=== PATIENT | male | born 1960 | race Hispanic/Latino ===

== ENCOUNTER 2016-08-02 11:59 | Inpatient (IN) | payer MEDICARE ==
[~2016-08-02] VITALS: Ht 152.4 cm; Wt 104.5 kg
[~2016-08-02 11:59] MED LIST: HYDR30CR76 RC; Lactulose PO
[2016-08-02 12:07] VITALS: BP 131/70; PULSE 94; RESP 18; O2SAT 98
--- NOTE | 2016-08-02 14:43 | ED.REPORT ---
HPI-General Illness Date of Service August 02, 2016 ED Provider: Maira Martinez History of Present Illness: forgets where he is sometimes. takes 2 grandchildren to school. no driving for the last 3 days. at 5 am started asking where the car was and his son is and who turned the car on? works at the [employer] shed, work is almost finished. usually walks but not for the last 3 days. has had 2 episodes of confusion in the last 3 month that resolved in 1 to 2 hours. legs are swollen feels dizzy and confused does not feel good, feels weak. Feeling weak for a while, 3 months. liver issues. Primary care is Dr. Alverto mckeon Nursing Notes Stated Complaint: MENTAL STATUS CHANGE Chief Complaint: General Complaint Nursing Notes Reviewed: Yes Allergies: Coded Allergies: No Known Allergies (Verified , 08/02/16) Uncoded Allergies: No Known Allergies (Allergy, Severe, 01/08/04) Scheduled Furosemide (Furosemide) 20 Mg Tab 60 MG PO DAILY Lactulose (Lactulose) 10 Gm/15 Ml Solution 60 ML PO 2-3times a day Spironolactone (Spironolactone) 50 Mg Tablet 150 MG PO DAILY General Time Seen by MD: 14:41 Chief Complaint Weakness (confusion), Other Hx Obtained From: Patient Past Medical History Past Medical History Reports: Morbid Obesity Past Surgical History denies Smoking History Never Smoker Social History Alcohol Use: Denies alcohol use Drug Use: Denies drug use Other Social History: Occupation lives with 08/02/2016 Ambulatory Status Independent Review of Systems Full Review of Systems Constitutional: Reports: Malaise, Weakness - generalized, Denies: Chills, Fatigue Respiratory: Reports: Dyspnea on exertion Complete sys rev & neg: except as marked. (unable to get inot bed, too weak to lift legs) Physical Exam Vital Signs Vital Signs Date Time Temp Pulse Resp B/P Pulse Ox O2 Delivery O2 Flow Rate FiO2 08/02/16 12:07 36.4 94 18 131/70 98 Room Air Initial VS: Reviewed, Vital signs normal General/Constitutional: Well-developed, Well-nourished Head / Eyes: Atraumatic, Normocephalic, PERRL ENT: Mucous membranes moist, Conjunctiva normal, No scleral icterus Neck: Supple, Non-tender, Full range of motion Respiratory: Breath sounds normal, Clear to auscultation, No respiratory distress Cardiovascular: Regular rate & rhythm, Heart sounds normal, Intact distal pulses Abdomen / GI: Soft, Non-tender, No guarding, No rebound, No distention Back: No CVA tenderness Lymphatic: No lymphadenopathy Extremities: Vascular intact, Neuro intact, No swelling, No tenderness Skin: Warm, Dry, No cyanosis Neurologic: Alert, Oriented, Nonfocal Psychiatric: Mood/affect normal, Behavior normal, Normal thought content General/Constitutional: Awake Alertness: Positive: Confused Appearance / Presentation: Positive: Appears older than age, Hygiene poor ( urine odor strong on his clothing), Obese, morbidly Head / Eyes: Atraumatic, Normocephalic, PERRL, EOMI ENT: Atraumatic, Airway patent, Mucous membranes moist, Pharynx NL Respiratory / Chest: Atraumatic, Breath sounds NL, Breath sounds = bilat, No respiratory distress Cardiovascular: Heart rate NL, Regular rhythm, Heart sounds NL Abdomen: Atraumatic, Soft, Non-tender Interpretation & Diagnostics Lab Results Interpretation Result Diagram: 08/02/16 1545 08/02/16 1545 Test 08/02/16 15:45 08/02/16 18:27 White Blood Count 5.2th/mm3 (3.8-10.1) Red Blood Count 3.70mil/mm3 (4.40-5.80) Hemoglobin 12.2g/dL (13.8-17.2) Hematocrit 35.6% (41.0-50.0) Mean Corpuscular Volume 96.2fL (81-100) Mean Corpuscular Hemoglobin 33.0pg (27.0-35.0) Mean Corpuscular Hemoglobin Concent 34.3% (32.0-37.0) Red Cell Distribution Width 15.3% (12.3-15.4) Platelet Count 85bil/L (150-400) Neutrophils (%) (Auto) 56.7% (40-74) Lymphocytes (%) (Auto) 31.8% (14-46) Monocytes (%) (Auto) 9.5% (4-12) Eosinophils (%) (Auto) 1.6% (0-5) Basophils (%) (Auto) 0.2% (0-3) Prothrombin Time 12.0sec (8.1-12.5) Prothromb Time International Ratio 1.12ratio Sodium Level 135mEq/L (134-144) Potassium Level 4.2mEq/L (3.5-5.2) Chloride Level 103mEq/L (97-108) Carbon Dioxide Level 21mmol/L (18-29) Blood Urea Nitrogen 10mg/dL (6-24) Creatinine 0.45mg/dL (0.76-1.27) Estimat Glomerular Filtration Rate 205mL/min (>59) Glucose Level 99mg/dL (60-99) Calcium Level 8.5mg/dL (8.5-10.1) Total Bilirubin 1.5mg/dL (0.0-1.2) Aspartate Amino Transf (AST/SGOT) 28U/L (0-50) Alanine Aminotransferase (ALT/SGPT) 15U/L (0-44) Alkaline Phosphatase 187U/L (25-150) Ammonia 295ug/dL (18-53) Troponin T < 0.010ug/L (0.0-0.011) Pro-B-Type Natriuretic Peptide 59.01pg/mL (0-210) Total Protein 6.8g/dL (6.4-8.4) Albumin 2.9g/dL (3.4-5.0) Hold Sinha Top Tube Received (Received) Urinalysis Comment None Lab Results Interpretation: urine pending X-Ray Interpretation Xray Interpretation: PROCEDURE: X-RAY CHEST, TWO VIEWS ([id number]) INDICATIONS: confusion TECHNIQUE: 2 views of the chest were acquired. COMPARISON: [facility], , XR CHEST 2VW, 09/14/2015, 20:17. FINDINGS: Surgical changes and devices: None. Lungs and pleura: No pleural effusions or pneumothorax. Lungs are clear. Mediastinum: Mediastinal contours are normal. Heart size is normal. Bones and chest wall: No suspicious bony abnormalities. Degenerative changes of the shoulders and spine are present. Soft tissues appear unremarkable. IMPRESSION: Negative chest. No acute cardiopulmonary process is evident. Dictated by: Steve Wallace M.D. on 08/02/2016 at 15:26 Approved by: Steve Wallace M.D. on 08/02/2016 at 15:27 CT Head Interpretation PROCEDURE: CT BRAIN WITHOUT CONTRAST ([id number]) INDICATIONS: confusion TECHNIQUE: Noncontrast 4.5 mm thick angled axial sections acquired from the foramen magnum to the vertex, with coronal reformats. COMPARISON: [facility], CT, CT BRAIN WO CON, 09/14/2015, 20:32. FINDINGS: Image quality: Excellent. CSF spaces: Basal cisterns are patent. No extra-axial fluid collections. The ventricles are symmetric in size and shape. Brain: No intracranial bleeds or masses. There is cerebral volume loss for age, with resultant ventricular and sulcal prominence. There are periventricular and deep white matter chronic small vessel ischemic changes. There is intracranial internal carotid artery atherosclerosis. Skull and face: Calvarium and visualized facial bones appear intact, without suspicious lesions. Sinuses: There is mild bilateral maxillary sinus mucosal thickening. Visualized sinuses and mastoids are otherwise clear. IMPRESSION: 1. No acute intracranial findings. 2. Mild findings likely associated with microvascular ischemic changes. Dictated by: Ama Peralta M.D. on 08/02/2016 at 15:36 Approved by: Ama Peralta M.D. on 08/02/2016 at 15:40 Re-Eval/Medical Decision Med Decision/Clinical Course 56 year old male brought in by family for increasing weakness and confusion. Patient is unable to get into the bed in the ER. At home he has been sleeping on the couch. This morning he starting asking bizzare questions. Work up reveals an ammonia level of 295. Brain CT is negative as is chest x-ray. Exam is consisent with hepatitic encaphapathy Discharge & Departure Primary Impression: Increased ammonia level Additional Impression: Altered level of consciousness Disposition: ADMITTED TO HOSPITAL [facility] EDSupervising Provider for APC: Alverto Aviles MD Attending Statement I discussed patient with nurse practitioner Michelle. Agree with plan as above. I evaluated the patient independently and agree with the plan as above. In brief, 56-year-old male with worsening confusion since yesterday. His ammonia is significantly elevated. He has history of alcohol abuse though has not drank for 3 years per . Patient will be admitted for altered mental status likely due to hepatic encephalopathy. copies to: [facility] Sue MAINTENANCE SERVICE SUPERVISOR August 02, 2016 14:42 Alverto Aviles MD August 02, 2016 17:46 (NONE SEEN) Urine Yeast None (NONE SEEN) Urinalysis Comment None Urine Culture Reflexed Not indicated Lab Results Interpretation: urine pending X-Ray Interpretation Xray Interpretation: PROCEDURE: X-RAY CHEST, TWO VIEWS ([id number]) INDICATIONS: confusion TECHNIQUE: 2 views of the chest were acquired. COMPARISON: [facility], CR, XR CHEST 2VW, 09/14/2015, 20:17. FINDINGS: Surgical changes and devices: None. Lungs and pleura: No pleural effusions or pneumothorax. Lungs are clear. Mediastinum: Mediastinal contours are normal. Heart size is normal. Bones and chest wall: No suspicious bony abnormalities. Degenerative changes of the shoulders and spine are present. Soft tissues appear unremarkable. IMPRESSION: Negative chest. No acute cardiopulmonary process is evident. Dictated by: Steve Wallace M.D. on 08/02/2016 at 15:26 Approved by: Steve Wallace M.D. on 08/02/2016 at 15:27 CT Head Interpretation PROCEDURE: CT BRAIN WITHOUT CONTRAST ([id number]) INDICATIONS: confusion TECHNIQUE: Noncontrast 4.5 mm thick angled axial sections acquired from the foramen magnum to the vertex, with coronal reformats. COMPARISON: [facility], CT, CT BRAIN WO CON, 09/14/2015, 20:32. FINDINGS: Image quality: Excellent. CSF spaces: Basal cisterns are patent. No extra-axial fluid collections. The ventricles are symmetric in size and shape. Brain: No intracranial bleeds or masses. There is cerebral volume loss for age, with resultant ventricular and sulcal prominence. There are periventricular and deep white matter chronic small vessel ischemic changes. There is intracranial internal carotid artery atherosclerosis. Skull and face: Calvarium and visualized facial bones appear intact, without suspicious lesions. Sinuses: There is mild bilateral maxillary sinus mucosal thickening. Visualized sinuses and mastoids are otherwise clear. IMPRESSION: 1. No acute intracranial findings. 2. Mild findings likely associated with microvascular ischemic changes. Dictated by: Ama Peralta M.D. on 08/02/2016 at 15:36 Approved by: Ama Peralta M.D. on 08/02/2016 at 15:40 Re-Eval/Medical Decision Med Decision/Clinical Course 56 year old male brought in by family for increasing weakness and confusion. Patient is unable to get into the bed in the ER. At home he has been sleeping on the couch. This morning he starting asking bizzare questions. Work up reveals an ammonia level of 295. Brain CT is negative as is chest x-ray. Exam is consisent with hepatitic encaphapathy Discharge & Departure Primary Impression: Increased ammonia level Additional Impression: Altered level of consciousness Disposition: ADMITTED TO HOSPITAL [facility]: [facility] ([facility]) EDSupervising Provider for APC: Alverto Aviles MD Attending Statement I discussed patient with nurse practitioner Michelle. Agree with plan as above. I evaluated the patient independently and agree with the plan as above. In brief, 56-year-old male with worsening confusion since yesterday. His ammonia is significantly elevated. He has history of alcohol abuse though has not drank for 3 years per . Patient will be admitted for altered mental status likely due to hepatic encephalopathy. copies to: [facility] Sue ARNP August 02, 2016 14:42 Alverto Aviles MD August 02, 2016 17:46
[2016-08-02] MEDS ORDERED: RIFA550T3 PO (14:52)
[2016-08-02] MEDS ORDERED: SPIR50TA2 PO (14:52)
[2016-08-02] MEDS ORDERED: FUR20 PO (14:52)
[2016-08-02] MEDS ORDERED: LACT10SO PO (14:52)
--- NOTE | 2016-08-02 15:41 | DRSVH ---
PROCEDURE: CT BRAIN WITHOUT CONTRAST ([id number]) INDICATIONS: confusion TECHNIQUE: Noncontrast 4.5 mm thick angled axial sections acquired from the foramen magnum to the vertex, with c oronal reformats. COMPARISON: [facility], CT, CT BRAIN WO CON, 09/14/2015, 20:32. FINDINGS: Image quality: Excellent. CSF spaces: Basal cisterns are patent. No extra-axial fluid collections. The ventricles are symmet isacc in size and shape. Brain: No intracranial bleeds or masses. There is cerebral volume loss for age, with resultant vent ricular and sulcal prominence. There are periventricular and deep white matter chronic small vessel ischemic changes. There is intracranial internal carotid artery atherosclerosis. Skull and face: Calvarium and visualized facial bones appear intact, without suspicious lesions. Sinuses: There is mild bilateral maxillary sinus mucosal thickening. Visualized sinuses and mastoids are otherwise clear. IMPRESSION: 1. No acute intracranial findings. 2. Mild findings likely associated with microvascular ischemic changes. Dictated by: Ama Peralta M.D. on 08/02/2016 at 15:36 Approved by: Aam Peralta M.D. on 08/02/2016 at 15:40
[2016-08-02 15:53] LABS: BASOPHILS % (AUTO) 0.2 % (0-3); EOSINOPHILS % (AUTO) 1.6 % (0-5); MONOCYTES % (AUTO) 9.5 % (4-12); Mean Corpuscular Volume 96.2 fL (81-100); NEUTROPHILS % (AUTO) 56.7 % (40-74); Platelet Count 85 bil/L (150-400)
[2016-08-02 16:10] LABS: INR 1.12 ratio
--- NOTE | 2016-08-02 16:28 | DRSVH ---
PROCEDURE: X-RAY CHEST, TWO VIEWS ([id number]) INDICATIONS: confusion TECHNIQUE: 2 views of the chest were acquired. COMPARISON: [facility], CR, XR CHEST 2VW, 09/14/2015, 20:17. FINDINGS: Surgical changes and devices: None. Lungs and pleura: No pleural effusions or pneumothorax. Lungs are clear. Mediastinum: Mediastinal contours are normal. Heart size is normal. Bones and chest wall: No suspicious bony abnormalities. Degenerative changes of the shoulders and s pine are present. Soft tissues appear unremarkable. IMPRESSION: Negative chest. No acute cardiopulmonary process is evident. Dictated by: Steve Wallace M.D. on 08/02/2016 at 15:26 Approved by: Steve Wallace M.D. on 08/02/2016 at 15:27
[2016-08-02 16:43] LABS: TROPONIN T < 0.010 ug/L (0.0-0.011)
--- NOTE | 2016-08-02 18:47 | PCM.HPMED ---
Subjective Date of Service August 02, 2016 Primary Provider: Admitting Physician: Primary Care Physician: Teresa Samuels-Samy Genny Sanders Attending Physician: Allergies Coded Allergies: No Known Allergies (Verified , 08/02/16) Uncoded Allergies: No Known Allergies (Allergy, Severe, 01/08/04) PMH Social History Hx Alcohol Use: Yes (HX ETOH abuse?) Hx Substance Use: No Smoking Status: Never Smoker Exam Vital Signs Vital Sign - Last Date Time Temp Pulse Resp B/P Pulse Ox O2 Delivery O2 Flow Rate FiO2 08/02/16 12:07 36.4 94 18 131/70 98 Room Air Lab and Diagnostics Result Diagram: 08/02/16 1545 08/02/16 1545 Assessment & Plan HPI: Patient is a 56-year-old Afghan-speaking gentleman who presents with complaint of altered mental status. The patient currently lives at home with his and states that he has had increased weakness and has been unable to ambulate. The patient currently has been sleeping in a chair because he has been unable to lift his legs to put in bed. The patient's also states that he has had a change in mental status and has been extremely forgetful over the last day and today he forgot where the bathroom was, where the car keys were , he was forgetting the names of his family members and the decided to bring him in. The patient currently does have a wheelchair however the states that he is ambulatory however over the last 3 days he has not been able to walk and his weakness has been progressing. It was noted in the ED that the patient has multiple medications that he is supposed to be taking however none of the medications had any updated expiration dates and so it is questionable as to whether or not the patient is currently taking his medication as prescribed. The states that she has been unable to monitor the patient's taking of medications that she is working during the day so she is unsure if he is actually taking his medications or not. Patient currently denies any chest pain, shortness of breath, nausea, vomiting. Patient complains of diarrhea ( most likely secondary to lactulose), dry eyes, abdominal pain in the right upper quadrant, lower extremity weakness, lower extremity swelling, and tenderness to palpation of the lower extremities bilaterally. Due to the patient's altered mental status most of his history was taken from the (Nikkie) and her son. Home medications: Lasix 60 mg daily Lactulose 60 mL by mouth 2-3 times a day RIFAXIMIN 550 mg by mouth twice a day Spironolactone 150 mg by mouth daily Allergies: No known drug allergies PMHx: Hepatitis SHx: Cholecystectomy FHx: Patient denies any family history of diabetes, hypertension, or heart disease SocHx: Occupation: Currently unemployed Tobacco history: Patient quit smoking 26 years ago Alcohol use: Former alcoholic patient quit drinking when he found out he had hepatitis 3 years ago Drug use: Patient denies ROS: A complete review of systems was performed or attempted to be performed. Please see HPI for pertinent positives, all other systems are negatives. Physical Exam: GEN: Patient was awake, alert, AAO 1 HEENT: Pupils equal round and reactive to light, extraocular eye muscles intact , sclera icteric Neck soft supple, trachea midline, nomocephalic/atraumatic CV: +S1/S2, regular rate and rhythm, positive systolic murmur grade 2/6 auscultated Respiratory: CTAB, no wheezes, rales, rhonchi GI: +bowel sounds x4, soft, compressible, tender to palpation EXT: no clubbing, cyanosis, +2 non-pitting edema in the lower extremities bilaterally, tenderness to palpation bilaterally Neuro: Cranial nerves II-XII grossly intact Psych: mood and affect were appropriate Assessment and Plan 56-year-old male with acute hepatic encephalopathy Hepatic encephalopathy most likely secondary to elevated ammonia levels -Start Lactulose 4 times a day -Continue home dose of Lasix -Repeat ammonia level in the morning -Follow up CBC & CMP Keratoconjunctivitis sicca -Teardrops 4 times a day -Continue to monitor Weakness -PT/OT consult -Continue to monitor -Hemoglobin A1c results pending -TSH results pending Diet: Renal DVT prophylaxis: Lovenox Code Status: Full code Disposition: Due to the nature of the patient's current diagnosis anticipated stay greater than 2 midnight Time spent 1 hour Gita Galindo DO August 02, 2016 18:47
[2016-08-02 19:26] LABS: APPEARANCE,URINE CLEAR (CLEAR,HAZY); COLOR,URINE YELLOW (YELLOW); OCCULT BLOOD,URINE NEGATIVE (NEGATIVE); UROBILINOGEN,URINE NORMAL (NORMAL)
[2016-08-02] MEDS ORDERED: Ondansetron 2 mg/mL 2 mL Inj IVPUSH PRN ×2 (19:50→20:05)
[2016-08-02] MEDS ORDERED: Alum-Mag Hydrox-Simeth 30 mL Suspension PO PRN ×2 (19:50→20:05)
[2016-08-02] MEDS ORDERED: Polyethylene Glycol (PEG) 17 Gm Powder PO PRN (20:05)
[2016-08-02] MEDS ORDERED: Artificial Tears 15 mL Ophthalmic Solution BOTH_EYES PRN (20:15)
[2016-08-02 20:30] VITALS: BP 129/74; PULSE 78; RESP 16; O2SAT 100
[2016-08-02 21:26] LABS: APPEARANCE,URINE CLEAR (CLEAR,HAZY); COLOR,URINE DARK YELLOW (YELLOW); OCCULT BLOOD,URINE LARGE (NEGATIVE); PH,URINE 7.5 (5.0-8.0)
[2016-08-02] MEDS: Lactulose 20 Gm/30 mL 30 mL Syrup PO SCH ×2 (21:30→23:04)
[2016-08-02] MEDS: Artificial Tears 15 mL Ophthalmic Solution BOTH_EYES SCH (22:28)
[2016-08-03 01:21] VITALS: BP 116/58; PULSE 74; RESP 20; O2SAT 95
[2016-08-03 06:10] VITALS: BP 115/71; PULSE 67; RESP 18; O2SAT 100
[2016-08-03] MEDS: Artificial Tears 15 mL Ophthalmic Solution BOTH_EYES SCH ×4 (06:21→21:19)
[2016-08-03] MEDS: Lactulose 20 Gm/30 mL 30 mL Syrup PO SCH ×4 (06:21→21:30)
[2016-08-03 06:44] LABS: Mean Corpuscular Hemoglobin 32.5 pg (27.0-35.0); Mean Corpuscular Volume 96.9 fL (81-100)
[2016-08-03 07:25] VITALS: BP 125/73; RESP 18
--- NOTE | 2016-08-03 11:13 | DRSVH ---
PROCEDURE: US ABDOMEN INDICATIONS: cirhosis TECHNIQUE: Real-time scanning was performed of the abdominal and retroperitoneal organs, with image documentatio n. COMPARISON: [facility], CT, CT ABD HEPATIC PROTOCOL, 04/07/2015, 15:51. [facility]ound, US, US ABDOMEN, 09/23/2015, 7:30. [facility], US, US ABDOMEN, 017, 8:13. FINDINGS: Liver length: 11.59 cm Spleen length: 11.98 cm Right kidney length: 9.81 cm Left kidney length: 10.91 cm Aorta(Mid): 2.05 cm Aorta(Distal): 2.08 cm Liver: Liver is atrophic, heterogeneous and coarse in appearance sella to prior examination. No foca l discrete hepatic mass is seen. Gallbladder: Cholecystectomy. Biliary ducts: Intrahepatic bile ducts are non-dilated. Extrahepatic bile duct caliber is normal. Normal is 6-7 mm or less in diameter, or 10 mm or less post-cholecystectomy. Pancreas: Visualized portions of the pancreas are sonographically normal. Spleen: Spleen is normal in size and homogeneous in echotexture. Kidneys: Kidneys are normal in size and echotexture. No hydronephrosis or nephrolithiasis. No chelsi d masses. Aorta: Visualized aorta is normal in caliber at less than 3 cm. Iliacs: Not well-seen. IVC: Intrahepatic inferior vena cava is patent. Miscellaneous: No free abdominal fluid. IMPRESSION: 1. Hepatic morphology suggesting cirrhosis similar to prior examination and no discrete focal hepatic abnormality seen in Dictated by: Kash Oconnor RRA Interpreted: Ama Peralta MD on 08/03/2016 at 11:10 Transcribed by: JOSHUA on 08/03/2016 at 11:12 Approved by: Ama Peralta M.D. on 08/03/2016 at 16:34
[2016-08-03 15:48] VITALS: BP 114/69; PULSE 81; RESP 18; O2SAT 99
--- NOTE | 2016-08-03 17:27 | PCM.PNMED ---
Subjective Date of Service August 03, 2016 Subjective Ultrasound done to look for ascites. Negative for ascites. Consistent with cirrhosis. Had 2 large bowel movements and mentation improved. Exam Vital Signs Vital Sign - Last Date Time Temp Pulse Resp B/P Pulse Ox O2 Delivery O2 Flow Rate FiO2 08/03/16 15:48 36.8 81 18 114/69 99 Room Air Intake and Output 08/02/16 08/02/16 08/03/16 Cumulative From/Thru 15:00 23:00 07:00 08/02/16 12:07 - 08/03/16 06:39 Intake Total 440 ml 440 ml Output Total 500 ml 500 ml Balance -60 ml -60 ml Intake Oral 440 ml 440 ml Output Urine Total 500 ml 500 ml # Voids 3 3 # Bowel Movements 0 0 Exam GEN: Patient was awake, alert, AAO 3 HEENT: Pupils equal round and reactive to light, extraocular eye muscles intact , sclera icteric Neck soft supple, trachea midline, nomocephalic/atraumatic CV: +S1/S2, regular rate and rhythm, positive systolic murmur grade 2/6 auscultated Respiratory: CTAB, no wheezes, rales, rhonchi GI: +bowel sounds x4, soft, compressible, tender to palpation EXT: no clubbing, cyanosis, +2 non-pitting edema in the lower extremities bilaterally, tenderness to palpation bilaterally Neuro: Cranial nerves II-XII grossly intact Psych: mood and affect were appropriate IVs and Medications Medications Reviewed: Medications were reviewed in detail Lab and Diagnostics Result Diagram: 08/03/1662408/03/16624 X-Rays, CTs and MRIs PROCEDURE: US ABDOMEN INDICATIONS: cirhosis FINDINGS: Liver length: 11.59 cm Spleen length: 11.98 cm Right kidney length: 9.81 cm Left kidney length: 10.91 cm Aorta(Mid): 2.05 cm Aorta(Distal): 2.08 cm Liver: Liver is atrophic, heterogeneous and coarse in appearance sella to prior examination. No focal discrete hepatic mass is seen. Gallbladder: Cholecystectomy. Biliary ducts: Intrahepatic bile ducts are non-dilated. Extrahepatic bile duct caliber is normal. Normal is 6-7 mm or less in diameter, or 10 mm or less post-cholecystectomy. Pancreas: Visualized portions of the pancreas are sonographically normal. Spleen: Spleen is normal in size and homogeneous in echotexture. Kidneys: Kidneys are normal in size and echotexture. No hydronephrosis or nephrolithiasis. No solid masses. Aorta: Visualized aorta is normal in caliber at less than 3 cm. Iliacs: Not well-seen. IVC: Intrahepatic inferior vena cava is patent. Miscellaneous: No free abdominal fluid. IMPRESSION: 1. Hepatic morphology suggesting cirrhosis similar to prior examination and no discrete focal hepatic abnormality seen in Dictated by: Kash Oconnor RRA Interpreted: Ama Peralta MD on 08/03/2016 at 11:10 Assessment & Plan Assessment and Plan 56-year-old male with acute hepatic encephalopathy #Hepatic encephalopathy -Improved after bowel movement. Mentation at baseline now. -Start Lactulose 4 times a day -Continue home dose of Lasix -Repeat ammonia level in the morning -Follow up CBC & CMP #Alcoholic cirrhosis -No alcohol for 3 years per patient and -Ultrasound of abdomen consistent with cirrhosis: No ascites -Continue Lasix and Aldactone -Patient does not remember having screening endoscopy, advised follow-up outpatient #Keratoconjunctivitis sicca -Teardrops 4 times a day -Continue to monitor #Lower Extremity edema -Likely due to cirrhosis -We will check echocardiogram #Weakness -PT -Continue to monitor -Hemoglobin A1c results pending -TSH results pending Diet: Renal DVT prophylaxis: Lovenox Code Status: Full code Disposition: Possible discharge tomorrow if continues to improve. Fritz Swain MD August 03, 2016 17:27
[2016-08-03 20:46] VITALS: BP 125/71; PULSE 73; RESP 18; O2SAT 99
[2016-08-04 05:50] VITALS: BP 127/68; PULSE 73; RESP 18; O2SAT 95
[2016-08-04] MEDS: Lactulose 20 Gm/30 mL 30 mL Syrup PO SCH ×2 (05:57→11:54)
[2016-08-04] MEDS: Artificial Tears 15 mL Ophthalmic Solution BOTH_EYES SCH ×2 (05:58→11:54)
--- NOTE | 2016-08-04 15:35 | DRSVH ---
[facility] [address] [place] [address] Echocardiogram Report Name: CHRISTIANO MILLS FStudy Date: 08/04 Height: 60 in Hospital Exam Location: [facility] Weight: 230 lb Gender: Male BSA: 2.0 m2 : 1960 Age: 56 yrs BP: 127/68 mmHg Reason For Study: Dyspnea Ordering Physician: Performed By: Mi Buenrostro Interpretation Summary The study quality was technically difficult. The patient was supine during test due to severe hip and leg cramps while in left lateral decubitus position. A contrast injection of Definity was performed to improve assessment of LV function. Comparison is made with the echocardiogram of 09/18/2015. The left ventricle is normal in size. Left ventricular systolic function is normal without focal wall motion abnormalities. The ejection fraction is estimated to be 70-75%. Assessment of diastolic parameters indicates normal left ventricular diastolic function and normal filling pressures. The right ventricle is not well visualized. Pulmonary artery pressures cannot be estimated because of the lack of a measurable TR jet velocity. The left atrium grossly appears normal in size. Right atrium not well visualized. No gross valvular abnormalities. The aortic root is normal size. There is no pericardial effusion. No significant changes since prior study. Procedure: A two-dimensional transthoracic echocardiogram with color flow and Doppler was performed. The study quality was technically difficult. The patient was supine during test due to severe hip and leg cramps while in left lateral decubitus position. A contrast injection of Definity was performed to improve assessment of LV function. Comparison is made with the echocardiogram of 09/18/2015. The subcostal views were not obtained due to lack of visualization of cardiac anatomy. The patient was in normal sinus rhythm during the exam. Left Ventricle: The left ventricle is normal in size. There is normal left ventricular wall thickness. Left ventricular systolic function is normal without focal wall motion abnormalities. The ejection fraction is estimated to be 70-75%. Assessment of diastolic parameters indicates normal left ventricular diastolic function and normal filling pressures. Right Ventricle: The right ventricle is not well visualized. Atria: The left atrium grossly appears normal in size. Right atrium not well visualized. There is no Doppler evidence for an interatrial shunt. Mitral Valve: The mitral valve is grossly normal. There is no mitral regurgitation noted. Aortic Valve: The aortic valve is trileaflet. The aortic valve opens well. No aortic regurgitation is present. Tricuspid Valve: The tricuspid valve is not well visualized, but is grossly normal. Pulmonary artery pressures cannot be estimated because of the lack of a measurable TR jet velocity. There is mild tricuspid regurgitation. Pulmonic Valve: The pulmonic valve is not well visualized. There is no pulmonic valvular regurgitation. No gross valvular abnormalities. Great Vessels: The aortic root is normal size. The ascending aorta is normal in size. The inferior vena cava was not visualized. Pericardium/ Pleura There is no pericardial effusion. MMode/2D Measurements & Calculations LVIDd: 4.7 cm LA A2 area Ao root diam LV [place]. diameter/BSA LVIDs: 3.6 cm (cm/m^2): 2.4 FS: 22.8 % asc Aorta IVSd: 0.95 cm LA A4 area Diam: 3.0 cm LVPWd: 0.81 cm LA length (vol) LA vol: 56.7 ml LA vol index : 28.6 ml/m2 LV sys. diameter/BSA (cm/m^2): 1.8 Doppler Measurements & Calculations Ao V2 max MV E max jorge MV E/A: 0.98 PA V2 max : 184.9 cm/sec : 98.9 cm/sec Med Peak E' Jorge : 116.1 cm/sec Ao max PG MV A max jorge PA mean PG : 13.7 mmHg : 101.1 cm/sec E/E' med: 8.4 Ao mean PG MV P1/2t: 80.7 msec PA Accel Time : 6.6 mmHg : 0.09 sec MV dec time MV P1/2t max jorge Ao V2 mean PA V2 mean : 0.27 sec : 115.3 cm/sec : 71.4 cm/sec Ao V2 VTI: 37.1 cm MVA(P1/2t): 2.7 cm2 Reading Physician:SHAKILA
[2016-08-04 15:53] VITALS: BP 115/70; PULSE 68; RESP 16; O2SAT 98
--- NOTE | 2016-08-04 16:45 | PCM.DIMED ---
Discharge Instructions Date of Service August 04, 2016 Dates of Hospitalization August 02, 2016 at 19:02 Discharge Diagnosis Discharge Diagnosis #Hepatic encephalopathy #Alcoholic cirrhosis #Keratoconjunctivitis sicca #Lower Extremity edema #Weakness Diet Low fat, Low Sodium Activity Limited until seen by PCP Call your provider Fever or Chills, Shortness of breath, Bleeding, Chest pain, Vomitting, Excessive diarrhea Patient Instructions You were hospitalized due to confusion due to hepatic encephalopathy . Please take rifaximin and lactulose as prescribed and titrate to 2-3 bowel movements a day. You have no fluid collection in abdomen ,i have lowered your lasix and spironolactone doses . Please follow up with PC for screening endoscopy and further adjustment of medications . Follow-up Provider: Shalom PEARCE Follow-up with PCP in: 1 week Fritz Swain MD August 04, 2016 16:45
[2016-08-04] MEDS ORDERED: FUR20 PO (16:46)
[2016-08-04] MEDS ORDERED: Artificial Tears BOTH_EYES (16:46)
[2016-08-04] MEDS ORDERED: SPIR50TA2 PO (16:46)
[2016-08-04] MEDS ORDERED: SPIR25TA3 PO (16:47)
--- NOTE | 2016-08-04 17:12 | PCM.DC.MED ---
Discharge Summary Date of Service August 04, 2016 Dates of Hospitalization Date of Hospital Admission August 02, 2016 at 19:02 Date of Discharge: August 04, 2016 Providers: Admitting Physician: Gita Galindo DO Primary Care Physician: [facility] Attending Physician: Gita Galindo DO Diagnosis at Time of Discharge Diagnosis at Time of Discharge #Hepatic encephalopathy #Alcoholic cirrhosis #Keratoconjunctivitis sicca #Lower Extremity edema #Weakness Procedures XRay, CTs & MRIs PROCEDURE: US ABDOMEN INDICATIONS: cirhosis FINDINGS: Liver length: 11.59 cm Spleen length: 11.98 cm Right kidney length: 9.81 cm Left kidney length: 10.91 cm Aorta(Mid): 2.05 cm Aorta(Distal): 2.08 cm Liver: Liver is atrophic, heterogeneous and coarse in appearance sella to prior examination. No focal discrete hepatic mass is seen. Gallbladder: Cholecystectomy. Biliary ducts: Intrahepatic bile ducts are non-dilated. Extrahepatic bile duct caliber is normal. Normal is 6-7 mm or less in diameter, or 10 mm or less post-cholecystectomy. Pancreas: Visualized portions of the pancreas are sonographically normal. Spleen: Spleen is normal in size and homogeneous in echotexture. Kidneys: Kidneys are normal in size and echotexture. No hydronephrosis or nephrolithiasis. No solid masses. Aorta: Visualized aorta is normal in caliber at less than 3 cm. Iliacs: Not well-seen. IVC: Intrahepatic inferior vena cava is patent. Miscellaneous: No free abdominal fluid. IMPRESSION: 1. Hepatic morphology suggesting cirrhosis similar to prior examination and no discrete focal hepatic abnormality seen in Dictated by: Kash Oconnor RRA Interpreted: Ama Peralta MD on 08/03/2016 at 11:10 Cardiac Echo Impression Interpretation Summary The study quality was technically difficult. The patient was supine during test due to severe hip and leg cramps while in left lateral decubitus position. A contrast injection of Definity was performed to improve assessment of LV function. Comparison is made with the echocardiogram of 09/18/2015. The left ventricle is normal in size. Left ventricular systolic function is normal without focal wall motion abnormalities. The ejection fraction is estimated to be 70-75%. Assessment of diastolic parameters indicates normal left ventricular diastolic function and normal filling pressures. The right ventricle is not well visualized. Pulmonary artery pressures cannot be estimated because of the lack of a measurable TR jet velocity. The left atrium grossly appears normal in size. Right atrium not well visualized. No gross valvular abnormalities. The aortic root is normal size. There is no pericardial effusion. No significant changes since prior study. Brief History per HPi HPI: Patient is a 56-year-old [place]i-speaking gentleman who presents with complaint of altered mental status. The patient currently lives at home with his and states that he has had increased weakness and has been unable to ambulate. The patient currently has been sleeping in a chair because he has been unable to lift his legs to put in bed. The patient's also states that he has had a change in mental status and has been extremely forgetful over the last day and today he forgot where the bathroom was, where the car keys were , he was forgetting the names of his family members and the decided to bring him in. The patient currently does have a wheelchair however the states that he is ambulatory however over the last 3 days he has not been able to walk and his weakness has been progressing. It was noted in the ED that the patient has multiple medications that he is supposed to be taking however none of the medications had any updated expiration dates and so it is questionable as to whether or not the patient is currently taking his medication as prescribed. The states that she has been unable to monitor the patient's taking of medications that she is working during the day so she is unsure if he is actually taking his medications or not. Patient currently denies any chest pain, shortness of breath, nausea, vomiting. Patient complains of diarrhea ( most likely secondary to lactulose), dry eyes, abdominal pain in the right upper quadrant, lower extremity weakness, lower extremity swelling, and tenderness to palpation of the lower extremities bilaterally. Due to the patient's altered mental status most of his history was taken from the (Nikkie) and her son. Hospital Course Assessment and Plan 56-year-old male with acute hepatic encephalopathy #Hepatic encephalopathy -Improved after bowel movement. Mentation at baseline now. -Continue Lactulose 4 times a day. Advised to titrate to 2-3 bowel movements -Elevated ammonia on admission #Alcoholic cirrhosis -No alcohol for 3 years per patient and -Ultrasound of abdomen consistent with cirrhosis: No ascites -Continue Lasix and Aldactone. Patient is on a very high-dose of diuretics. Aldactone 150 daily and Lasix 60 daily. He has +1 edema on the lower extremity but no ascites on ultrasound. I lowered his Lasix to 20 mg daily and Aldactone 25 mg daily. May even stop outpatient if lower extremity edema improves -Patient does not remember having screening endoscopy, advised follow-up outpatient #Keratoconjunctivitis sicca -Teardrops 4 times a dayr #Lower Extremity edema -Likely due to cirrhosis - echocardiogram unremarkable #Weakness, can be due to overdiuresis. Lowered diuresis as above -Outpatient PT -A1c 5.1, TSH normal Discharge to home Condition on discharge stable and improved Exam Vital Signs (Last) Date Time Temp Pulse Resp B/P Pulse Ox O2 Delivery O2 Flow Rate FiO2 08/04/16 15:53 37.1 68 16 115/70 98 Room Air Exam GEN: Patient was awake, alert, AAO 3 HEENT: Pupils equal round and reactive to light, extraocular eye muscles intact , sclera icteric Neck soft supple, trachea midline, nomocephalic/atraumatic CV: +S1/S2, regular rate and rhythm, positive systolic murmur grade 2/6 auscultated Respiratory: CTAB, no wheezes, rales, rhonchi GI: +bowel sounds x4, soft, compressible,non tender to palpation . No sign of fluid collection EXT: no clubbing, cyanosis, +2 non-pitting edema in the lower extremities bilaterally, tenderness to palpation bilaterally Neuro: Cranial nerves II-XII grossly intact Psych: mood and affect were appropriate Test 08/02/16 15:45 08/02/16 21:02 08/03/16 06:25 Neutrophils (%) (Auto) 56.7% (40-74) Lymphocytes (%) (Auto) 31.8% (14-46) Monocytes (%) (Auto) 9.5% (4-12) Eosinophils (%) (Auto) 1.6% (0-5) Basophils (%) (Auto) 0.2% (0-3) Prothrombin Time 12.0sec (8.1-12.5) Prothromb Time International Ratio 1.12ratio Hemoglobin A1c 5.1% (4.8-5.6) Troponin T < 0.010ug/L (0.0-0.011) Pro-B-Type Natriuretic Peptide 59.01pg/mL (0-210) Hold Sinha Top Tube Received (Received) Urine Color Dark yellow (YELLOW) Urine Appearance Clear (CLEAR,HAZY) Urine pH 7.5 (5.0-8.0) Urine Specific [place] 1.010 (1.003-1.035) Urine Protein Tracemg/dL (NEG,TRACE) Urine Glucose (UA) Negativemg/dL (NEGATIVE) Urine Ketones Tracemg/dL (NEGATIVE) Urine Occult Blood Large (NEGATIVE) Urine Nitrite Negative (NEGATIVE) Urine Bilirubin Negative (NEGATIVE) Urine Urobilinogen 1.0mg/dL (NORMAL) Urine Leukocyte Esterase Negative (NEGATIVE) Urine RBC >50/hpf (0-2) Urine WBC 0-5/hpf (0-5) Urine Epithelial Cells None/hpf (NONE-MOD) Urine Crystals None seen (NONE SEEN) Urine Bacteria Few/hpf (NONE-FEW) Urine Hyaline Casts None/lpf (NONE) Urine Granular Casts None seen (NONE SEEN) Urine Waxy Casts None seen (NONE SEEN) Urine Red Blood Cell Casts None seen (NONE SEEN) Urine White Blood Cell Casts None seen (NONE SEEN) Urine Mucus None seen (None Seen) Urine Trichomonas None seen (NONE SEEN) Urine Yeast None (NONE SEEN) Urinalysis Comment None Urine Culture Reflexed Not indicated White Blood Count 3.8th/mm3 (3.8-10.1) Red Blood Count 3.51mil/mm3 (4.40-5.80) Hemoglobin 11.4g/dL (13.8-17.2) Hematocrit 34.0% (41.0-50.0) Mean Corpuscular Volume 96.9fL (81-100) Mean Corpuscular Hemoglobin 32.5pg (27.0-35.0) Mean Corpuscular Hemoglobin Concent 33.5% (32.0-37.0) Red Cell Distribution Width 15.5% (12.3-15.4) Platelet Count 84bil/L (150-400) Sodium Level 139mEq/L (134-144) Potassium Level 4.1mEq/L (3.5-5.2) Chloride Level 106mEq/L (97-108) Carbon Dioxide Level 21mmol/L (18-29) Blood Urea Nitrogen 8mg/dL (6-24) Creatinine 0.45mg/dL (0.76-1.27) Estimat Glomerular Filtration Rate 205mL/min (>59) Glucose Level 83mg/dL (60-99) Calcium Level 8.4mg/dL (8.5-10.1) Total Bilirubin 2.3mg/dL (0.0-1.2) Aspartate Amino Transf (AST/SGOT) 28U/L (0-50) Alanine Aminotransferase (ALT/SGPT) 12U/L (0-44) Alkaline Phosphatase 124U/L (25-150) Ammonia 195ug/dL (18-53) Total Protein 6.0g/dL (6.4-8.4) Albumin 2.6g/dL (3.4-5.0) Free Thyroxine 1.12ng/dL (0.82-1.77) Discharge Medications Discharge Medications ([Artificial Tears]) 15 DROP/ML SOLUTION 1-2 DROP BOTH_EYES QID Prescribed by: PAULA OCAMPO MD Furosemide (Furosemide) 20 Mg Tab 20 MG PO DAILY Prescribed by: PAULA OCAMPO MD Lactulose (Lactulose) 10 Gm/15 Ml Solution 60 ML PO 2-3times a day (Reported) Spironolactone (Spironolactone) 25 Mg Tablet 25 MG PO DAILY Prescribed by: PAULA OCAMPO MD Followup Plan Disposition: Home with outpatient physical therapy Discharge Diet: Low fat, Low Sodium Discharge Activity: Limited until seen by PCP Patient Instructions You were hospitalized due to confusion due to hepatic encephalopathy . Please take rifaximin and lactulose as prescribed and titrate to 2-3 bowel movements a day. You have no fluid collection in abdomen ,i have lowered your lasix and spironolactone doses . Please follow up with PC for screening endoscopy and further adjustment of medications . [facility]up with PCP in: 1 week Time spent 35 minutes copies to: [facility] Melaku MD August 04, 2016 17:12
== END 2016-08-04 18:31 | disposition home or self-care (01) | DRG 443 ==
LOC: SED 11:59 → OSC 19:02 → OBSVTOIN 19:02
PROVIDERS: ADMIT Neuromusculoskeletal Medicine & OMM; ATTEND Neuromusculoskeletal Medicine & OMM
DX: K72.00 Acute and subacute hepatic failure without coma (principal); K70.30 Alcoholic cirrhosis of liver without ascites; H16.229 Keratoconjunctivitis sicca, not specified as Sjogren's, unspecified eye; F10.21 Alcohol dependence, in remission